=== PATIENT | female | born 1990 | race Caucasian/White ===

== ENCOUNTER 2020-10-02 11:11 | Emergency (ER) | payer OTHER ==
[~2020-10-02] VITALS: Ht 157.5 cm; Wt 67.1 kg
[2020-10-02] MEDS ORDERED: CELEXA 10 MG TA10 M1 PO (11:20)
[2020-10-02] MEDS ORDERED: BUSPIRONE HCL10 MG PO (11:20)
[2020-10-02 11:51] LABS: URINE BILIRUBIN NEGATIVE (Negative); URINE BLOOD 2+ (Negative); URINE CLARITY CLEAR; URINE COLOR YELLOW; URINE GLUCOSE-RANDOM NEGATIVE (Negative); URINE KETONES NEGATIVE (Negative); URINE LEUKOCYTES-REFLEX 1+ (Negative); URINE NITRITE-REFLEX NEGATIVE (Negative); URINE PROTEIN TRACE (Negative); URINE SPECIFIC GRAVITY 1.015 (1.005-1.030); URINE UROBILINOGEN 0.2 E.U./dl (0.2-1.0)
[2020-10-02 12:01] LABS: ABSOLUTE LYMPHOCYTES 1.6 thou/uL (0.8-5.3); NUCLEATED RBCS 0 /100WBC
[2020-10-02 12:04] LABS: CALCIUM 8.3 mg/dL (8.5-10.1); CREATININE 0.6 mg/dL (0.6-1.3)
[2020-10-02 12:06] LABS: SQUAMOUS 4-10 Moderate /LPF (0-3)
[2020-10-02 12:06] LABS: ABSOLUTE BASOPHILS 0.1 thou/uL (0.0-0.2); ABSOLUTE EOSINOPHILS 0.1 thou/uL (0.0-0.7); ABSOLUTE NEUTROPHILS 11.3 thou/uL (1.6-8.1); BASOPHILS 0.4 %; EOSINOPHILS 0.5 %; HEMATOCRIT 42.5 % (37.0-47.0); HEMOGLOBIN 14.2 gm/dL (12.0-15.0); LYMPHOCYTES 11.6 %; MCH 32.3 pg (26.0-34.0); MCHC 33.3 g/dL (28.0-37.0); MCV 97.2 fL (80.0-100.0); MONOCYTES 7.4 %; MPV 8.4 fl. (7.2-11.1); PLATELET COUNT* 227 thou/uL (150-400); POLYS 80.1 %; RBC 4.38 mil/uL (4.20-5.00); WBC 14.1 thou/uL (4.0-11.0)
[2020-10-02 12:07] LABS: CASTS None Seen /LPF (None Seen); CRYSTALS None Seen /LPF (None Seen); MUCUS None Seen strn/LPF (None Seen); RENAL EPITHELIAL CELLS 4-10 Moderate /LPF (None Seen); URINE RBC 0-2 Rare /HPF (0-2)
[2020-10-02 12:08] LABS: ALBUMIN 3.4 g/dL (3.4-5.0); TOTAL BILIRUBIN 0.6 mg/dL (<0.1-1.0)
[2020-10-02] MEDS ORDERED: ZOFRAN ODT4 MG PO (14:09)
[2020-10-02] MEDS ORDERED: IBUPROFEN 800800 M1 PO (14:09)
[2020-10-02] MEDS ORDERED: CEFDINIR300 MG PO (14:09)
[2020-10-02] MEDS ORDERED: NORCO5 PO (14:22)
[2020-10-02 15:22] VITALS: BP 109/42
== END 2020-10-02 15:23 | disposition home or self-care (01) ==
LOC: M.ERS 11:11
PROVIDERS: Nurse Practitioner Family
DX: N12 Tubulo-interstitial nephritis, not specified as acute or chronic (principal); Z20.822 Contact with and (suspected) exposure to COVID-19; F32.9 Major depressive disorder, single episode, unspecified; F41.9 Anxiety disorder, unspecified; Z87.442 Personal history of urinary calculi; Z79.899 Other long term (current) drug therapy